=== PATIENT | female | born 1980 | race Two or more races ===

== ENCOUNTER 2024-02-19 08:23 | Day surgery (SDC) | payer OTHER ==
[2024-02-19] MEDS ORDERED: POVIDONE-IODINE 118 ML BOTT TOP ONE ×2 (11:59→15:15)
[2024-02-19] MEDS ORDERED: EPINEPHRINE HCL/PF 1 MG/ML AMPUL ONE (11:59)
[2024-02-19] MEDS ORDERED: LIDOCAINE HCL 1%/EPINEPHRINE 20ML VIAL IJ ONE (12:00)
[2024-02-19] MEDS ORDERED: BACITRACIN 28.35 GM OINT.TUBE TOP ONE (12:03)
[2024-02-19] MEDS ORDERED: NEOMYCIN/POLYMYXIN B/HYDROCORT 20 DR/ML BOTTLE OT ONE (12:03)
[2024-02-19] MEDS ORDERED: CEFAZOLIN SODIUM 1,000 MG VIAL ONE (12:07)
[2024-02-19] MEDS ORDERED: CEFAZOLIN SODIUM 1,000 MG VIAL IV SCH (15:00)
[2024-02-19] MEDS ORDERED: EPINEPHRINE HCL/PF 1 MG/ML AMPUL IR SCH (15:00)
[2024-02-19] MEDS ORDERED: NEOMYCIN/POLYMYXIN B/HYDROCORT 20 DR/ML BOTTLE OT SCH (15:00)
[2024-02-19] MEDS ORDERED: LIDOCAINE HCL/EPINEPHRINE 10 ML VIAL IJ SCH (15:00)
[2024-02-19] MEDS ORDERED: BACITRACIN 28.35 GM OINT.TUBE TOP SCH (15:00)
[2024-02-19] MEDS ORDERED: DEXAMETHASONE SODIUM PHOSPHATE 4 MG/ML VIAL ONE (15:49)
[2024-02-19] MEDS ORDERED: DEXAMETHASONE SODIUM PHOSPHATE 4 MG/ML VIAL IV ONE (16:00)
[2024-02-19] MEDS ORDERED: CIPROFLOXACIN2.5 ML OTIC (16:03)
[2024-02-19] MEDS ORDERED: CEPHALEXIN500 M1 PO (16:04)
== END 2024-02-19 17:50 | disposition home or self-care (01) ==
LOC: CIR.AMB 08:23
PROVIDERS: ATTEND Otolaryngology Otology & Neurotology
DX: H80.91 Unspecified otosclerosis, right ear (principal); H90.11 Conductive hearing loss, unilateral, right ear, with unrestricted hearing on the contralateral side